=== PATIENT | female | born 1980 | race Caucasian/White ===

== ENCOUNTER → 2023-09-27 14:18 | Outpatient (REF) | payer BC, SELFPAY | LOC: PNTC 14:18 | PROVIDERS: ATTENDING PHYSICIAN Nurse Practitioner Family | DX: O36.70X0 Maternal care for viable fetus in abdominal pregnancy, unspecified trimester, not applicable or unspecified (principal) | CPT/HCPCS: 76801 ==

== ENCOUNTER → 2023-10-16 13:25 | Outpatient (REF) | payer BC, SELFPAY | LOC: PNTC 13:25 | PROVIDERS: ATTENDING PHYSICIAN Obstetrics & Gynecology | DX: Z87.51 Personal history of pre-term labor (principal); O09.521 Supervision of elderly multigravida, first trimester; Z36.0 Encounter for antenatal screening for chromosomal anomalies; Z36.82 Encounter for antenatal screening for nuchal translucency | CPT/HCPCS: 36415; 76801; 76813 ==

== ENCOUNTER → 2023-11-15 13:29 | Outpatient (REF) | payer BC, SELFPAY | LOC: PNTC 13:29 | PROVIDERS: ATTENDING PHYSICIAN Obstetrics & Gynecology | DX: Z87.51 Personal history of pre-term labor (principal) | CPT/HCPCS: 76805; 76817 ==

== ENCOUNTER → 2023-11-29 14:01 | Outpatient (REF) | payer BC, SELFPAY | LOC: PNTC 14:01 | PROVIDERS: ATTENDING PHYSICIAN Obstetrics & Gynecology | DX: Z87.51 Personal history of pre-term labor (principal); O42.019 Preterm premature rupture of membranes, onset of labor within 24 hours of rupture, unspecified trimester | CPT/HCPCS: 76815; 76817 ==

== ENCOUNTER → 2023-12-26 13:29 | Outpatient (REF) | payer BC, SELFPAY | LOC: PNTC 13:29 | PROVIDERS: ATTENDING PHYSICIAN Obstetrics & Gynecology | DX: O99.519 Diseases of the respiratory system complicating pregnancy, unspecified trimester (principal); O09.219 Supervision of pregnancy with history of pre-term labor, unspecified trimester | CPT/HCPCS: 76815; 76817 ==

== ENCOUNTER → 2024-01-15 13:29 | Outpatient (REF) | payer BC, SELFPAY | LOC: PNTC 13:29 | PROVIDERS: ATTENDING PHYSICIAN Obstetrics & Gynecology | DX: O09.519 Supervision of elderly primigravida, unspecified trimester (principal); Z87.51 Personal history of pre-term labor | CPT/HCPCS: 76816; 76817 ==

== ENCOUNTER → 2024-02-12 13:21 | Outpatient (REF) | payer BC, SELFPAY | LOC: PNTC 13:21 | PROVIDERS: ATTENDING PHYSICIAN Obstetrics & Gynecology | DX: O09.529 Supervision of elderly multigravida, unspecified trimester (principal); O09.219 Supervision of pregnancy with history of pre-term labor, unspecified trimester | CPT/HCPCS: 76816 ==

== ENCOUNTER → 2024-03-04 13:20 | Outpatient (REF) | payer BC, SELFPAY | LOC: PNTC 13:20 | PROVIDERS: ATTENDING PHYSICIAN Obstetrics & Gynecology | DX: O09.219 Supervision of pregnancy with history of pre-term labor, unspecified trimester (principal); O09.529 Supervision of elderly multigravida, unspecified trimester | CPT/HCPCS: 76816 ==

== ENCOUNTER → 2024-03-11 13:26 | Outpatient (REF) | payer BC, SELFPAY | LOC: PNTC 13:26 | PROVIDERS: ATTENDING PHYSICIAN Obstetrics & Gynecology | DX: O09.519 Supervision of elderly primigravida, unspecified trimester (principal); O09.219 Supervision of pregnancy with history of pre-term labor, unspecified trimester | CPT/HCPCS: 59025; 76816 ==

== ENCOUNTER 2024-03-16 20:17 | Observation (INO) | payer BC, SELFPAY ==
[2024-03-16 20:33] VITALS: BMI 27.0
[2024-03-16 20:34] LABS: Urine Albumin Trace (Neg - Trace); Urine Bilirubin Negative (Negative); Urine Character Clear (Clear); Urine Color Yellow; Urine Glucose Negative (Negative); Urine Ketone Negative (Negative); Urine Leukocyte 1+ (Negative); Urine Nitrite Negative (Negative); Urine Occult Blood Trace (Negative); Urine Specific Gravity 1.015 (<1.030); Urine Urobilinogen Negative (Neg - 1+); Urine pH 6.5 (5.0-9.0)
[2024-03-16 20:43] LABS: Urine Squamous Cell >30 /LPF (Few); Urine White Cell 0-2 /HPF (0-5)
[2024-03-16 21:02] VITALS: BP 127/74
[2024-03-16] MEDS: LR 1000 IV ×2 (21:03→22:15)
[2024-03-16 21:52] LABS: % Basophils 0.2 % (0-2); % Eosinophils 0.2 % (0-6); % Immature Granulocytes 0.6 % (0-0.5); % Lymphocytes 12.4 % (20.5-51.1); % Monocytes 6.3 % (1.7-9.3); % Neutrophils 80.3 % (42.2-75.2); Absolute Immature Granulocytes 0.1 10^3/uL (0-0.05); Absolute Lymphocytes 1.6 10^3/uL (1.2-3.4); Absolute Monocytes 0.8 10^3/uL (0.1-0.6); Hematocrit 33.2 % (37.0-47.0); Hemoglobin 11.8 g/dL (12.0-16.0); Mean Corp Hgb Conc. 35.5 g/dL (33.0-37.0); Mean Corpuscular Hgb 32.9 pg (27.0-31.0); Mean Corpuscular Volume 92.5 fL (81.0-99.0); Mean Platelet Volume 10.8 fL (7.4-10.4); Nucleated Red Blood Cells % 0 %; Platelet Count 240 10^3/uL (130-400); Red Blood Cell Count 3.59 10^6/uL (4.20-5.40); Red Cell Dist. Width 12.4 % (11.5-14.5); White Blood Cell Count 12.5 10^3/uL (4.8-10.8)
[2024-03-16] MEDS: CELESTONE SOLUSPAN 2 MG IM (21:53)
== END 2024-03-16 23:49 | disposition home or self-care (01) ==
LOC: LDRP 20:17
PROVIDERS: ADMITTING PHYSICIAN Obstetrics & Gynecology; FAMILY PHYSICIAN Family Medicine
DX: R10.9 Unspecified abdominal pain (principal); I49.8 Other specified cardiac arrhythmias; O09.523 Supervision of elderly multigravida, third trimester; Z3A.33 33 weeks gestation of pregnancy; Z88.5 Allergy status to narcotic agent
CPT/HCPCS: 81003; 81015; 85025; 86850; 86900; 86901; 87070; 87086; 93005; G0378

== ENCOUNTER 2024-03-17 21:22 | Observation (INO) | payer BC, SELFPAY ==
[2024-03-17 21:30] VITALS: BP 127/57; BMI 27.5
[2024-03-17] MEDS: CELESTONE SOLUSPAN 2 MG IM (21:48)
== END 2024-03-17 22:11 | disposition home or self-care (01) ==
LOC: LDRP 21:22
PROVIDERS: ADMITTING PHYSICIAN Student in an Organized Health Care Education/Training Program; FAMILY PHYSICIAN Obstetrics & Gynecology
DX: O99.413 Diseases of the circulatory system complicating pregnancy, third trimester (principal); I49.8 Other specified cardiac arrhythmias; Z3A.33 33 weeks gestation of pregnancy
CPT/HCPCS: 96372; J0702; G0378

== ENCOUNTER → 2024-03-18 13:57 | Outpatient (REF) | payer BC, SELFPAY | LOC: PNTC 13:57 | PROVIDERS: ATTENDING PHYSICIAN Obstetrics & Gynecology | DX: O09.519 Supervision of elderly primigravida, unspecified trimester (principal); O09.219 Supervision of pregnancy with history of pre-term labor, unspecified trimester | CPT/HCPCS: 59025; 76815 ==

== ENCOUNTER → 2024-03-20 13:46 | Outpatient (REF) | payer BC, SELFPAY | LOC: RAD 13:46 | PROVIDERS: ATTENDING PHYSICIAN Family Medicine | DX: R60.0 Localized edema (principal) | CPT/HCPCS: 93971 ==

== ENCOUNTER → 2024-03-25 12:28 | Outpatient (REF) | payer BC, SELFPAY | LOC: PNTC 12:28 | PROVIDERS: ATTENDING PHYSICIAN Obstetrics & Gynecology | DX: O09.219 Supervision of pregnancy with history of pre-term labor, unspecified trimester (principal); O09.529 Supervision of elderly multigravida, unspecified trimester | CPT/HCPCS: 59025; 76815 ==

== ENCOUNTER → 2024-04-01 13:20 | Outpatient (REF) | payer BC, SELFPAY | LOC: PNTC 13:20 | PROVIDERS: ATTENDING PHYSICIAN Obstetrics & Gynecology | DX: O09.529 Supervision of elderly multigravida, unspecified trimester (principal); O09.211 Supervision of pregnancy with history of pre-term labor, first trimester | CPT/HCPCS: 59025; 76815 ==

== ENCOUNTER → 2024-04-08 13:31 | Outpatient (REF) | payer BC, SELFPAY | LOC: PNTC 13:31 | PROVIDERS: ATTENDING PHYSICIAN Obstetrics & Gynecology | DX: O09.529 Supervision of elderly multigravida, unspecified trimester (principal); O60.10X0 Preterm labor with preterm delivery, unspecified trimester, not applicable or unspecified | CPT/HCPCS: 36415; 59025; 76816 ==

== ENCOUNTER 2024-04-11 10:45 | Observation (INO) | payer BC, SELFPAY ==
[2024-04-11 10:55] VITALS: BP 109/94; BMI 28.0
[2024-04-11 11:17] LABS: Hematocrit 35.4 % (37.0-47.0); Hemoglobin 12.2 g/dL (12.0-16.0); Mean Corp Hgb Conc. 34.5 g/dL (33.0-37.0); Mean Corpuscular Volume 92.9 fL (81.0-99.0); Platelet Count 255 10^3/uL (130-400); Red Blood Cell Count 3.81 10^6/uL (4.20-5.40); Red Cell Dist. Width 12.9 % (11.5-14.5); White Blood Cell Count 9.6 10^3/uL (4.8-10.8)
[2024-04-11 11:26] LABS: Urine Albumin Trace (Neg - Trace); Urine Bilirubin Negative (Negative); Urine Character Very Cloudy (Clear); Urine Color Yellow; Urine Glucose Negative (Negative); Urine Ketone Negative (Negative); Urine Leukocyte 2+ (Negative); Urine Nitrite Negative (Negative); Urine Occult Blood 1+ (Negative); Urine Specific Gravity 1.025 (<1.030); Urine Urobilinogen Negative (Neg - 1+)
[2024-04-11 11:28] LABS: ALT (SGPT) 13 U/L (0-35); AST (SGOT) 25 U/L (14-36); Albumin 3.7 g/dl (3.5-5.0); Alkaline Phosphatase 115 U/L (38-126); Blood Urea Nitrogen 5 mg/dl (7-17); Calcium 8.7 mg/dl (8.4-10.2); Carbon Dioxide 20 mmol/L (22-30); Chloride 104 mmol/L (98-107); Estimated Creatinine Clearance 125 ml/min; Glucose 110 mg/dl (70-99); Potassium 3.8 mmol/L (3.5-5.1); Sodium 134 mmol/L (135-145); Total Bilirubin 0.4 mg/dl (0.2-1.3); Total Protein 6.8 g/dl (6.3-8.2); eGFR > 60.00
[2024-04-11 11:34] LABS: Urine Bacteria Moderate (Negative); Urine Squamous Cell >30 /LPF (Few)
[2024-04-11 11:35] LABS: Urine Red Blood Cell 0-2 /HPF (0-2)
[2024-04-11 11:36] LABS: Protein/creatinine Ratio 0.1; Urine Protein 25 mg/dl
== END 2024-04-11 15:00 | disposition home or self-care (01) ==
LOC: LDRP 10:45
PROVIDERS: ADMITTING PHYSICIAN Obstetrics & Gynecology
DX: O47.03 False labor before 37 completed weeks of gestation, third trimester (principal); Z3A.37 37 weeks gestation of pregnancy; O36.8330 Maternal care for abnormalities of the fetal heart rate or rhythm, third trimester, not applicable or unspecified; Z88.5 Allergy status to narcotic agent; O09.523 Supervision of elderly multigravida, third trimester
CPT/HCPCS: 80053; 81003; 81015; 82570; 84156; 85027; 86850; 86900; 86901; G0378

== ENCOUNTER → 2024-04-15 13:21 | Outpatient (REF) | payer BC, SELFPAY | LOC: PNTC 13:21 | PROVIDERS: ATTENDING PHYSICIAN Obstetrics & Gynecology | DX: O09.529 Supervision of elderly multigravida, unspecified trimester (principal); O09.219 Supervision of pregnancy with history of pre-term labor, unspecified trimester | CPT/HCPCS: 59025; 76815 ==

== ENCOUNTER → 2024-04-16 14:24 | Outpatient (REF) | payer BC, SELFPAY | LOC: PNTC 14:24 | PROVIDERS: ATTENDING PHYSICIAN Obstetrics & Gynecology | DX: O36.8190 Decreased fetal movements, unspecified trimester, not applicable or unspecified (principal) | CPT/HCPCS: 59025 ==

== ENCOUNTER 2024-04-18 09:29 | Inpatient (IN) | payer BC, SELFPAY ==
[2024-04-18 09:41] VITALS: BP 127/72; BMI 28.6
[2024-04-18] MEDS: LR 1000 IV (10:17)
[2024-04-18 10:34] LABS: % Basophils 0.3 % (0-2); % Immature Granulocytes 0.3 % (0-0.5); % Lymphocytes 12.9 % (20.5-51.1); % Monocytes 5.7 % (1.7-9.3); % Neutrophils 80.8 % (42.2-75.2); Absolute Lymphocytes 1.2 10^3/uL (1.2-3.4); Absolute Monocytes 0.5 10^3/uL (0.1-0.6); Absolute Neutrophils 7.4 10^3/uL (1.4-6.5); Hemoglobin 11.8 g/dL (12.0-16.0); Mean Corp Hgb Conc. 33.7 g/dL (33.0-37.0); Mean Corpuscular Hgb 31.4 pg (27.0-31.0); Mean Corpuscular Volume 93.1 fL (81.0-99.0); Nucleated Red Blood Cells % 0 %; Platelet Count 236 10^3/uL (130-400); Red Blood Cell Count 3.76 10^6/uL (4.20-5.40); Red Cell Dist. Width 12.9 % (11.5-14.5); White Blood Cell Count 9.2 10^3/uL (4.8-10.8)
[2024-04-18] MEDS: PITOCIN 30 UNITS/NSS 500 ML IV (12:24)
[2024-04-18] MEDS: FENTANYL/BUPIVACAINE 100 EPIDURAL (14:53)
[2024-04-18] MEDS: SUBLIMAZE 100 MCG EPIDURAL (14:53)
[2024-04-18] MEDS: TYLENOL 650 MG PO (22:36)
[2024-04-18] MEDS: MOTRIN 600 MG PO (22:37)
[2024-04-19] MEDS: TYLENOL 650 MG PO ×3 (03:38→22:51)
[2024-04-19] MEDS: MOTRIN 600 MG PO ×3 (05:07→22:51)
[2024-04-19 05:42] LABS: Hematocrit 31.2 % (37.0-47.0); Hemoglobin 10.6 g/dL (12.0-16.0)
[2024-04-19] MEDS: SENOKOT-S 1 TABLET PO (08:56)
[2024-04-19] MEDS: THERAGRAN 1 TABLET PO (08:56)
[2024-04-20] MEDS: MOTRIN 600 MG PO (08:47)
[2024-04-20] MEDS: THERAGRAN 1 TABLET PO (08:47)
[2024-04-20] MEDS: SENOKOT-S 1 TABLET PO (08:47)
[2024-04-20] MEDS: TYLENOL 650 MG PO (08:47)
[2024-04-22 16:17] LABS: Syphilis/T. pallidum Ab Reflex Negative (Negative)
== END 2024-04-20 11:40 | disposition home or self-care (01) | DRG 805 ==
LOC: LDRP 09:29
PROVIDERS: ADMITTING PHYSICIAN Obstetrics & Gynecology
PROC: 10D07Z6 Extraction of Products of Conception, Vacuum, Via Natural or Artificial Opening (ICD-10-PCS; 2024-04-18)
PROC: 0UQGXZZ Repair Vagina, External Approach (ICD-10-PCS; 2024-04-18)
DX: O76 Abnormality in fetal heart rate and rhythm complicating labor and delivery (principal); O71.1 Rupture of uterus during labor; Z37.0 Single live birth; Z3A.38 38 weeks gestation of pregnancy
CPT/HCPCS: 85014; 85018; 85025; 86780; 86850; 86900; 86901